=== PATIENT | female | born 1995 | race Caucasian/White ===

== ENCOUNTER 2018-01-29 19:57 | Emergency (ER) | payer MEDICAID ==
[~2018-01-29] VITALS: Ht 162.6 cm; Wt 63.5 kg
[2018-01-29] MEDS ORDERED: IBUPROFEN600 MG ORAL (20:33)
[2018-01-29] MEDS ORDERED: NORCO 5-325 TA1 EACH ORAL (20:33)
[2018-01-29] MEDS ORDERED: Norco 5mg/325mg tab ORAL ONE (20:45)
[2018-01-29 21:15] VITALS: BP 0/0
--- NOTE | 2018-01-29 21:53 | Emergency Room Report ---
History of Present Illness General Chief Complaint: Pain Source: Patient Present Illness HPI Patient is a 23-year-old female who presented after increased ankle pain. Patient had recent fall and stated that she inverted her ankle. Patient reported having pain to the the left ankle and was unable to ambulate. The she had noted marked swelling. She denied other locations of injury. She denies any foot pain. She reported having some pain to the posterior calf Allergies: Coded Allergies: Inocente (Verified Allergy, Unknown, Swelling, 01/29/18) Olives (Verified Allergy, Unknown, Itchiness, 01/29/18) Patient History Past Medical History: see triage record Last Menstrual Period: 2015 Now: No : 1 Para: 1 Reviewed Nursing Documentation: PMH: Agreed; PSxH: Agreed Nursing Documentation-PMH Past Medical History: No Stated History Review of Systems All Other Systems: negative except mentioned in HPI Physical Exam Vital Signs Date Time Temp Pulse Resp B/P (MAP) Pulse Ox O2 Delivery O2 Flow Rate FiO2 01/29/18 19:59 98.3 97 15 113/74 96 Room Air 98.2 General Appearance: well appearing, no apparent distress, alert, GCS 15 Head: normocephalic, atraumatic ENT: hearing grossly normal, normal voice Neck: full range of motion, supple Respiratory: no respiratory distress, speaking full sentences Musculoskeletal: no calf tenderness, decreased range of mation, swelling - echymosis Neurologic: normal inspection, alert, oriented x3, responsive, linux admin engineer III-XII nml as tested, normal gait Psychiatric: mood/affect normal Skin: other - bruising and swelling Medical Decision Making Diagnostic Impression: Primary Impression: Closed fibular fracture ER Course Patient presented for ankle pain. Differential diagnosis included was not limited to sprain, fracture, dislocation, cellulitis, vascular insufficiency. X -ray imaging of the ankle was ordered. X-ray imaging of the left ankle 3 views interpreted by me showed a fibular fracture at the distal fibula. The patient was placed in air cast. The patient was advised to follow-up with orthopedics was given prescription for pain medications. Last Vital Signs Date Time Temp Pulse Resp B/P (MAP) Pulse Ox O2 Delivery O2 Flow Rate FiO2 01/29/18 21:15 0/0 01/29/18 20:57 98.3 01/29/18 19:59 97 15 96 Room Air Status: improved Disposition: HOME, SELF-CARE Condition: Stable Scripts Ibuprofen* (MOTRIN*) 600 Mg Tablet 600 MG ORAL Q8H PRN for For Pain, #30 TAB 0 Refills Prov: Chivo Reyna 01/29/18 Hydrocodone Bit/Acetaminophen 5-325* (NORCO 5-325*) 1 Each Tablet 1 TAB ORAL Q6H PRN for For Pain, #20 TAB 0 Refills Prov: Chivo Reyna 01/29/18 Referrals: NON PHYSICIAN (PCP) Patient Instructions: Fibular Ankle Fracture Treated With or Without Immobilization, Adult Chivo Reyna Jan 29, 2018 21:53
--- NOTE | 2018-01-30 11:41 | Diagnostic Imaging Report ---
Indication: left ankle pain Comparison: None Findings: 3 views of the left ankle obtained. Acute oblique lateral malleolar fracture demonstrated with overlying soft tissue swelling. The fracture is comminuted. IMPRESSION: Acute lateral malleolus fracture
== END 2018-01-29 21:10 | disposition home or self-care (01) ==
LOC: EMR 20:35
DX: S82.62XA Displaced fracture of lateral malleolus of left fibula, initial encounter for closed fracture (principal); W19.XXXA Unspecified fall, initial encounter; Y92.009 Unspecified place in unspecified non-institutional (private) residence as the place of occurrence of the external cause
CPT/HCPCS: 99284